=== PATIENT | female | born 1985 | race Two or more races ===

== ENCOUNTER 2017-08-30 11:54 | Emergency (ER) | payer OTHER ==
[~2017-08-30] VITALS: Ht 172.7 cm; Wt 49.9 kg
[~2017-08-30 11:54] MED LIST: DIPHENHYDRAMINE25 M1 ORAL; PREDNISONE20 MG ORAL; RANITIDINE HCL150 MG ORAL
[2017-08-30] MEDS ORDERED: Acetaminophen 500mg (ES) tab ORAL ONE (12:30)
--- NOTE | 2017-08-30 12:32 | Emergency Room Report ---
History of Present Illness General Chief Complaint: Lower Extremity Injury Source: Patient Present Illness HPI 32-year-old female patient presents ER complaining of left knee pain since yesterday. Reports that she is directed to class and an ankle LOC when she tried to escape from a LOC and [place] a at her left knee. Reports that she heard "3 pops" in her left knee. Reports pain with ambulation since that time. Reports no taken any pain medication. Reports decreased range of motion secondary to pain. Denies hitting her head or loss consciousness. Denies other acute symptoms. Denies history of injury or surgery. Allergies: Coded Allergies: Pork (Verified Allergy, Unknown, 08/30/17) Uncoded Allergies: NUTS (Allergy, Unknown, 08/30/17) SPICES (Allergy, Unknown, 08/30/17) Patient History Past Medical History: see triage record Last Menstrual Period: 08/23/2017 Now: No Reviewed Nursing Documentation: PMH: Agreed; PSxH: Agreed Nursing Documentation-PMH Past Medical History: No History, Except For Review of Systems All Other Systems: negative except mentioned in HPI Physical Exam Vital Signs Date Time Temp Pulse Resp B/P (MAP) Pulse Ox O2 Delivery O2 Flow Rate FiO2 08/30/17 12:05 98.0 77 16 99/66 97 Room Air 98.1 Sp02 EP Interpretation: reviewed, normal General Appearance: well appearing, no apparent distress, alert, GCS 15, non- toxic Head: normocephalic, atraumatic Eyes: bilateral eye normal inspection, bilateral eye PERRL Neck: full range of motion Respiratory: lungs clear, normal breath sounds, no rhonchi, no respiratory distress, no accessory muscle use, no wheezing, speaking full sentences Cardiovascular #1: regular rate, rhythm, no edema Musculoskeletal: back normal, digits/nails normal, gait/station normal, decreased range of motion - secondary to pain, pain with varus/valgus stress, other - no erythema, no edema, negative posterior and anterior ankle drawer, tender - distal lateral aspect of left knee Neurologic: alert, oriented x3, responsive, motor strength/tone normal, sensory intact Psychiatric: mood/affect normal Medical Decision Making PA Attestation Dr. Davila is my supervising Physician whom patient management has been discussed with. Diagnostic Impression: Primary Impression: Left knee injury ER Course Pt. presents to the ED c/o left knee pain Ddx considered but are not limited to fracture, sprain, strain, contusion, dislocation. No erythema, no warmth to touch, no fever, nontoxic appearing, low suspicion for septic joint. Vital signs: are WNL, pt. is afebrile Ordered X-ray and pain medication. ER COURSE Provided with pain medication. An X-ray of the left knee shows no acute fracture, small effusion per the official reading. informed patient of results, instructed to take Tylenol and keep leg elevated. informed patient possible soft tissue injury, including but not limited to meniscal or ligament. inform patient of need for outpatient follow-up and further treatment discuss need for MRI imaging with PCP or orthopedist. Splint was applied to the left knee was checked afterwards by me showing good alignment and support with distal neurovascular functioning intact. Crutches provided. Patient instructed on RICE method: rest, ice, compression, elevation. Patient instructed on rest, ice and heat. Patient instructed to be WBAT Followup with primary care provider. Discuss referral to ortho/pain management/ PT as needed. Discuss further imaging with MRI/CT as needed. DISCHARGE: -Rx provided for Tylenol for pain symptoms. At this time pt. is stable for d/c to home. Patient is resting comfortably, in no acute distress, nontoxic appearing, talking without difficulty. Will provide printed patient care instructions, and any necessary prescriptions. Patient instructed to follow with primary care provider in 3 - 5 days and to request further follow-up as needed. Care plan and follow up instructions have been discussed with the patient prior to discharge. Take medications as directed. Patient questions asked and answered. Patient reports understanding and agreement to treatment plan. ER precautions given, patient instructed to return to ER immediately for any new or worsening of symptoms. - Please note that this Emergency Department Report was dictated using [employer] software, occasionally this can lead to erroneous entry secondary to interpretation by the dictation equipment. Other X-Ray Diagnostic Results Other X-Ray Diagnostic Results : X-Ray ordered: left knee # of Views/Limited Vs Complete: 3 View Indication: Pain EP Interpretation: Yes PA Xray: Interpretation reviewed, by supervising MD, and agrees with findings. Interpretation: no dislocation, no fractures, other - small effusion Impression: No acute disease PA Scribe Text Gustavo Tejeda PA-C Last Vital Signs Date Time Temp Pulse Resp B/P (MAP) Pulse Ox O2 Delivery O2 Flow Rate FiO2 08/30/17 12:05 98.0 77 16 99/66 97 Room Air 98.1 Disposition: HOME, SELF-CARE Condition: Stable Scripts Acetaminophen* (TYLENOL EXTRA STRENGTH*) 500 Mg Tablet 500 MG ORAL Q8H PRN for Prn Headache/Temp > 101, #30 TAB 0 Refills Prov: Romero Tejeda 08/30/17 Patient Instructions: Knee Sprain Additional Instructions: Patient instructed to follow up with primary care provider and discuss further referral to orthopedics. Discuss need for MRI. Patient instructed on RICE method: rest, ice, compression, elevation. Patient instructed to NWB. Take medications as directed. Patient questions asked and answered. ER precautions given, patient instructed to return to ER immediately for any new or worsening of symptoms. Romero Tejeda Aug 30, 2017 12:32
[2017-08-30] MEDS ORDERED: TYLENOL EXTRA500 MG ORAL (12:59)
--- NOTE | 2017-08-30 13:02 | Diagnostic Imaging Report ---
EXAM: XR Left Knee, 3 views CLINICAL HISTORY: PAIN TECHNIQUE: Three views of the left knee. COMPARISON: No relevant prior studies available. FINDINGS: Bones/joints: Small effusion. No acute fracture. Soft tissues: No radiodense foreign body. IMPRESSION: Small effusion. No acute fracture.
[2017-08-30 13:16] VITALS: BP 99/66
== END 2017-08-30 13:19 | disposition home or self-care (01) ==
LOC: EMR 12:34
DX: S89.92XA Unspecified injury of left lower leg, initial encounter (principal); Y93.75 Activity, martial arts; Y92.9 Unspecified place or not applicable
CPT/HCPCS: 99283